=== PATIENT | male | born 1980 | race Caucasian/White ===

== ENCOUNTER 2017-04-20 02:30 | Emergency (ER) | payer OTHER ==
[~2017-04-20] VITALS: Ht 188 cm; Wt 104.5 kg
[2017-04-20 02:32] VITALS: TEMP 98
[2017-04-20] MEDS ORDERED: PERCOCET 325 MG1 TA2 PO (03:31)
[2017-04-20 04:15] VITALS: BP 123/89; PULSE 69
== END 2017-04-20 04:15 | disposition home or self-care (01) ==
LOC: COL.ER 02:30
DX: S82.55XA Nondisplaced fracture of medial malleolus of left tibia, initial encounter for closed fracture (principal); M79.672 Pain in left foot; W22.8XXA Striking against or struck by other objects, initial encounter; Y92.830 Public park as the place of occurrence of the external cause
CPT/HCPCS: J1170

== ENCOUNTER 2017-04-29 05:21 | Day surgery (SDC) | payer OTHER ==
[~2017-04-29] VITALS: Ht 188 cm; Wt 103.2 kg
[2017-04-29] VITALS (8 sets, daily range): BP systolic 100–115; BP diastolic 62–83; PULSE 55–77; TEMP 97.1–97.8
[~2017-04-29 05:21] MED LIST: PERCOCET 325 MG1 TA2 PO
[2017-04-29] MEDS ORDERED: OXY IR5 MG PO (06:37)
[2017-04-29] MEDS ORDERED: ROXICODONE 55 MG/TAB PO (10:51)
[2017-04-29] MEDS ORDERED: NORCO 325 MG-7.1 TAB PO (10:52)
== END 2017-04-29 10:58 | disposition home or self-care (01) ==
LOC: SDCO 05:21
DX: S82.52XA Displaced fracture of medial malleolus of left tibia, initial encounter for closed fracture (principal); S93.402A Sprain of unspecified ligament of left ankle, initial encounter; F17.210 Nicotine dependence, cigarettes, uncomplicated; K21.9 Gastro-esophageal reflux disease without esophagitis; Z80.9 Family history of malignant neoplasm, unspecified; Z82.49 Family history of ischemic heart disease and other diseases of the circulatory system
CPT/HCPCS: C1713; J1100; J1885; J2250; J2405; J2704; J2795; J3010; J7120

== ENCOUNTER 2019-01-03 02:53 | Emergency (ER) | payer BC | END 2019-01-03 03:09 | disposition home or self-care (01) | LOC: COL.ER 02:53 | DX: K02.9 Dental caries, unspecified (principal) ==

== ENCOUNTER 2023-10-31 07:43 | Day surgery (SDC) | payer OTHER ==
[~2023-10-31] VITALS: Ht 188 cm; Wt 96.9 kg
[~2023-10-31 07:43] MED LIST changes: +CLEOCIN HCL300 MG PO; +NORCO 325 MG-51 TAB PO; +NORCO 325 MG-7.1 TAB PO; +OXY IR5 MG PO; +ROXICODONE 55 MG/TAB PO; +ZOFRAN ODT4 MG PO
[2023-10-31 08:43] VITALS: BP 122/81; PULSE 67; TEMP 97.3
[2023-10-31] MEDS ORDERED: NORCO 325 MG-51 TAB PO (11:56)
[2023-10-31 12:20] VITALS: BP 113/67; PULSE 64; TEMP 97.3
[2023-10-31 12:35] VITALS: BP 107/68; PULSE 64
[2023-10-31 12:45] VITALS: BP 115/83; PULSE 72
--- NOTE | 2023-10-31 13:00 | NUR ---
1220 RETURNS TO ROOM 6 PER CART. AWAKE, ALERT HOB ELEVATED 60 DEGREES. RESP UNLABORED. VITAL SIGNS OBTAINED. ABD SOFT. BANDAID X 3 SITES. UMBILICUS BANDAID WITH SMALL AMOUNT OF RED DRAINAGE. REPORTS MILD DISCOMFORT. DENIES NAUSEA. CALL LIGHT AT SIDE. HERE 1235 TOLERATES PO WATER, SODA AND PUDDING WITHOUT NAUSEA 1245 DISCHARGE INSTRUCTIONS REVIEWED. PATIENT VERBALIZES UNDERSTANDING. COPY PROVIDED IN DISCHARGE FOLDER 1250 SITS ON EDGE OF CART. DRESSES SELF, THEN AMBULATES TO BATHROOM WITH STANDBY ASSIST. ADMITS TO VOIDING WITHOUT DIFFICULTY
== END 2023-10-31 13:03 | disposition home or self-care (01) ==
LOC: SDCO 07:43
DX: K80.10 Calculus of gallbladder with chronic cholecystitis without obstruction (principal); F17.210 Nicotine dependence, cigarettes, uncomplicated
CPT/HCPCS: J0360; J0690; J1100; J1790; J1885; J2405; J2704; J3010; J7120